=== PATIENT | male | born 1995 ===

== ENCOUNTER → 2017-10-16 | Outpatient (CLI) | payer OTHER ==
[~2017-10-16] MED LIST: ESC10 PO; IBUP600T22 PO
[2017-10-16 13:46] LABS: PLATELET COUNT, AUTOMATED 199 K/uL (150-450)
== END ==
LOC: LAB 13:19
PROVIDERS: ATTEND Internal Medicine
DX: R10.9 Unspecified abdominal pain (principal); R07.9 Chest pain, unspecified; R14.0 Abdominal distension (gaseous)
CPT/HCPCS: 36415; 81001; 82040; 82150; 82247; 82310; 82374; 82435; 82565; 82947; 83690; 84075; 84132; 84155; 84295; 84443; 84450; 84460; 84520; 85025; 86677

== ENCOUNTER → 2017-11-19 | Outpatient (CLI) | payer OTHER ==
--- NOTE | 2017-11-19 15:02 | RADIOLOGY IMAGING REPORT ---
FACILITY: [facility] [place] PATIENT NAME: Rashad Al : 1995 MR: [id number] V: [id number] EXAM DATE: ORDERING PHYSICIAN: KATIE REID TECHNOLOGIST: Location: [facility] Patient: Rashad Al : 1995 Visit/Account:[id number] Date of Sevice: 11/19/2017 Exam type: HAND COMPLETE RIGHT History: right HAND CONTUSION Comparison: None. Findings: Three views of the right hand demonstrates a slightly impacted fracture through the head of the righ t fifth metacarpal with four angulation at the fracture site. IMPRESSION: 1. Slightly impacted fracture through the head of the right fifth metacarpal with volar angulation a t the fracture site Report Dictated By: Amna Lebron MD at 11/19/2017 2:20 PM Report E-Signed By: Amna Lebron MD at 11/19/2017 2:58 PM WSN:[email or web address]
== END ==
LOC: RAD 13:00
PROVIDERS: ATTEND Internal Medicine
DX: S62.396A Other fracture of fifth metacarpal bone, right hand, initial encounter for closed fracture (principal)

== ENCOUNTER 2018-09-19 08:18 | Emergency (ER) | payer OTHER ==
[~2018-09-19 08:18] MED LIST changes: +SERT-184 PO; +TRAZ50TA34 PO
[2018-09-19 08:25] VITALS: BP 122/75
--- NOTE | 2018-09-19 08:34 | ER Report ---
History and Physical Time Seen By MD: 08:34 Hx. of Stated Complaint: left eye pain is able to see without diff HPI/ROS CHIEF COMPLAINT: Erythema, inflammation of the lower eyelid HISTORY OF PRESENT ILLNESS: Patient is a 22-year-old male here with complaints of left lower eyelid and inflammation consistent with a stye. Patient reports that over the past 24 hours he has had increased swelling, inflammation but denies visual changes, blurred vision, diplopia. Denies prior history of similar symptoms. REVIEW OF SYSTEMS: Constitutional: No fever, no chills. Eyes: No discharge. Erythema, mild edema of the left lower eyelid. Extraocular muscles intact. Denies blurred vision, diplopia. ENT: No sore throat. Skin: No rashes. Neurological: No headache. Allergies: Coded Allergies: No Known Drug Allergies (Unverified , 03/05/17) Home Meds Active Scripts Doxycycline Hyclate (DOXYCYCLINE HYCLATE) 100 Mg Tablet, 100 MG PO BID for 7 Days, #14 TAB Prov:RENETTA GARCIA DO 09/19/18 Discontinued Scripts Trazodone Hcl (TRAZODONE HCL) 50 Mg Tablet, 0.5-1 TAB PO QHS PRN for diff. sleeping, #30 TAB Prov:KATIE REID MD 04/09/18 Sertraline Hcl (SERTRALINE HCL) 50 Mg Tablet, 1 TAB PO QDAY, #30 TAB 2 Refills start 1 tablet daily x 1-2 weeks than 2 tablets daily Prov:KATIE REID MD 04/09/18 Smoking Status: Former Smoker Hx Substance Use Disorder: No Hx Alcohol Use: Yes (RARE) Constitutional Vital Sign - Last 24 Hours 09/19/18 08:25 Temp 97.7 Pulse 75 Resp 12 B/P (MAP) 122/75 Pulse Ox 95 O2 Delivery Room Air Physical Exam General Appearance: The patient is alert, has no immediate need for airway protection and no signs of toxicity. No acute distress Eyes: Pupils equal and round no pallor or injection. Extraocular muscles intact. Mild erythema and edema of the left lower eyelid consistent with stye Neurological: No focal neurological deficits Skin: Warm and dry, no rashes. DIFFERENTIAL DIAGNOSIS: After history and physical exam differential diagnosis was considered for stye, chalazion, preseptal cellulitis, orbital cellulitis Medical Decision Making ED Course/Re-evaluation ED Course Patient is a 22-year-old male here with complaints of left lower eyelid swelling, edema, erythema consistent with a stye. Patient was recommended to use warm compresses for the next 24-48 hours. Patient was given a prescription for doxycycline in case symptoms progress or worsen in spite of using warm compresses. Recommend close follow-up with PCP, return precautions provided. Decision to Disposition Date: Sep 19, 2018 Decision to Disposition Time: 08:46 Depart Departure Latest Vital Signs Vital Signs Date Time Temp Pulse Resp B/P (MAP) Pulse Ox O2 Delivery O2 Flow Rate FiO2 09/19/18 08:25 97.7 75 12 122/75 95 Room Air Impression: Primary Impression: Stye Condition: Improved Disposition: HOME OR SELF-CARE Referrals: KATIE REID MD (PCP) New Scripts Doxycycline Hyclate (DOXYCYCLINE HYCLATE) 100 Mg Tablet 100 MG PO BID for 7 Days, #14 TAB Prov: RENETTA GARCIA DO 09/19/18 Patient Instructions: Stye (ED) Additional Instructions: Please apply warm compresses to the affected area. You were sent home with a prescription for an antibiotic. If you do not have resolution or improvement in symptoms in the next 24 hours, please fill the prescription and take as directed. Please follow-up with your family doctor in the next 24-48 hours. Please return immediately if you develop visual changes, worsening pain, increased inflammation, double vision. RENETTA GARCIA DO Sep 19, 2018 08:34
[2018-09-19] MEDS ORDERED: DOXY-179 PO (08:49)
== END 2018-09-19 08:55 | disposition home or self-care (01) ==
LOC: ER 08:50
DX: H00.015 Hordeolum externum left lower eyelid (principal)
CPT/HCPCS: 99281